=== PATIENT | male | born 1970 | race Caucasian/White ===

== ENCOUNTER 2016-05-10 18:50 | Emergency (ER) ==
[2016-05-10 19:25] LABS: URINE CULTURE PL NEEDED? NO; URINE SOURCE VOIDED
[2016-05-10 19:37] LABS: UR AMPHETAMINES QUAL NONE DETECTED (NONE DETECT); UR BARBITUATES QUAL NONE DETECTED (NONE DETECT); UR BENZODIAZEPIN QUAL NONE DETECTED (NONE DETECT); UR CANNABINOIDS QUAL NONE DETECTED (NONE DETECT); UR COCAINE QUAL NONE DETECTED (NONE DETECT); UR MDMA QUAL NONE DETECTED (NONE DETECT); UR METHADONE QUAL NONE DETECTED (NONE DETECT); UR METHAMPHETAMINE QUAL NONE DETECTED (NONE DETECT); UR OPIATES QUAL NONE DETECTED (NONE DETECT); UR OXYCODONE QUAL NONE DETECTED (NONE DETECT); UR PCP QUAL NONE DETECTED (NONE DETECT); UR TCA QUAL NONE DETECTED (NONE DETECT)
[2016-05-10 19:50] LABS: BILIRUBIN URINE NEGATIVE (NEGATIVE); BLOOD URINE NEGATIVE (NEGATIVE); CLARITY CLEAR (CLEAR); COLOR YELLOW; LEUKOCYTES URINE NEGATIVE (NEGATIVE); NITRITE URINE NEGATIVE (NEGATIVE); PH URINE 6.5; PROTEIN URINE NEGATIVE (NEGATIVE); SP GRAVITY URINE 1.015; UROBILINOGEN URINE NORMAL
[2016-05-10 19:51] LABS: URINE CAST NONE SEEN /LPF; URINE CRYSTAL NONE SEEN /HPF; URINE EPITHELIAL CELLS <10 /HPF (<10)
[2016-05-10 20:42] LABS: MANUAL DIFF NEEDED? NO
[2016-05-10 20:47] LABS: BASO% 0.4 % (0.0-0.8); EOS# 0.06 X1000 (0.0-0.7); EOS% 0.7 % (0.0-10.0); HEMATOCRIT 35.5 % (42.0-52.0); IMM GRAN# 0.01 X1000 (0.0-0.04); IMM GRAN% 0.1 % (0.0-0.5); LYMPH# 1.45 X1000 (1.2-3.4); MCH 25.8 PG (27-31); MCV 83.1 FL (81-99); MONO% 8.7 % (1.7-9.3); MPV 10.5 FL (7.4-10.4); NEUT% 72.1 % (42.2-75.2); PLT 245 X1000 (130-400); RBC 4.27 XMIL (4.7-6.1)
[2016-05-10 21:10] LABS: ACETAMINOPHEN < 1.2 ug/mL (10-30); AGAP 8; ALBUMIN 4.2 g/dL (3.5-5.0); ALKALINE PHOSPHATASE 72 U/L (32-122); BUN 18 mg/dL (8-22); CALCIUM 8.6 mg/dL (8.8-10.2); CHLORIDE 108 mmol/L (98-107); COSMO 282; GOT 19 U/L (10-34); GPT 25 U/L (10-44); MAGNESIUM 2.1 mg/dL (1.5-2.7); SODIUM 141 mmol/L (136-145); TCO2 26 mmol/L (25-35); TOTAL BILIRUBIN < 0.15 mg/dL (0.20-1.00); TOTAL PROTEIN 6.5 g/dL (6.3-8.3)
--- NOTE | 2016-05-11 00:10 | PROVIDER DOCUMENTATION ---
HPI-Psychological Disorder - General Source: patient <Gerri Leal - Last Filed: 05/11/16 00:10> - General Source: patient - History of Present Illness-Psych Onset/Duration: reports: other (3 weeks) Timing: reports: still present Severity: reports: mild Situational problems related to:: reports: N/A Psychiatric Complaints: reports: suicidal ideation Substance Use: reports: none/never Previous psych related hospitalizations?: Yes Patient arrived by:: private car Similar Symptoms Previously?: Yes Recently seen or treated by another doctor?: No - Suicidal Ideation Suicide Risk Assessment: male sex, prior attempt, organized plan, bi-polar <Shruthi Vail - Last Filed: 05/11/16 00:20> - General Chief Complaint: Psych Stated Complaint: PHYCH EVAL/SUICIDAL Time Seen by Provider: 05/10/16 22:37 Allergies/Adverse Reactions: Patient Allergies Allergy/AdvReac Type Severity Reaction Status Date / Time No Known Allergies Allergy Verified 06/26/14 01:20 Home Medications: Clonazepam [Klonopin] 1 mg PO TID 05/10/16 Duloxetine [Cymbalta] 60 mg PO DAILY 05/10/16 Gabapentin [Neurontin] 400 mg PO TID 05/10/16 Ziprasidone [Geodon] 80 mg PO 05/10/16 Zolpidem Tartrate [Ambien] 10 mg PO DAILY 05/10/16 - History of Present Illness-Psych Nature of Presenting Problem: 45 year old M presents to the ED with a cc of suicidal ideation. Pt states that onset was 3 weeks ago. Pt states that he called his doctor and they called him in Ambien. Pt states that none of his medications have been working. Pt has had prior attempts before of suicide by cutting, hanging, and jumping out of a moving vehicle. PT states this time he has considered shooting himself. states that she has locked all ammo in a safe and has a plan to move all weapons out of the house tonight. PT states last week he had some visual hallucinations but that has since resolved. Pt denies HI. (Shruthi Vail) Review of Systems - Adult - REVIEW OF SYSTEMS - ADULT Constitutional: denies: chills, fever Eyes: reports: no symptoms reported Ears, Nose, Mouth & Throat: reports: no symptoms reported Cardiovascular: reports: no symptoms reported Respiratory: reports: no symptoms reported Gastrointestinal: denies: nausea, vomiting Genitourinary: reports: no symptoms reported Musculoskeletal: denies: muscle aches, muscle weakness Integumentary: denies: skin sores/ulcer, skin thickening Neurological: reports: no symptoms reported Psychiatric: reports: suicidal thoughts, other (bipolar) Endocrine: reports: no symptoms reported Hematologic/Lymphatic: reports: no symptoms reported Allergic/Immunologic: reports: no symptoms reported All Other Systems: Reviewed and Negative <Shruthi Vail - Last Filed: 05/11/16 00:20> Past History - Adult - PAST MEDICAL HISTORY-ADULT Cardiovascular: reports: HTN - PRIOR SURGERIES/PROCEDURES Surgical/Procedure History: reports: hernia repair, gastric bypass - IMMUNIZATION STATUS Childhood Immunizations: See Nurse Assessment Flu Vaccine: See Nurse Assessment <Gerri Leal - Last Filed: 05/11/16 00:10> - PAST MEDICAL HISTORY-ADULT Review of Records: reports: Nursing Assessment Review, Medications Reviewed Major Childhood Illnesses: reports: denies history Cardiovascular: reports: HTN Psychiatric: reports: bipolar, depression - PRIOR SURGERIES/PROCEDURES Surgical/Procedure History: reports: hernia repair, gastric bypass - IMMUNIZATION STATUS Childhood Immunizations: See Nurse Assessment Flu Vaccine: See Nurse Assessment - SOCIAL HISTORY Smoking: non-smoker Substance Use: none/never Alcohol Use Frequency: never <Shruthi Vail - Last Filed: 05/11/16 00:20> Physical Exam-Psych Focus - Physical Exam-Psych Initial Vital Signs Reviewed: Yes Appearance: appropriate appearance, appropriate insight, neat, no memory impairment, denies illness Neurological: alert, normal mood/affect, calm, house designer II-XII nml as tested, oriented x 3, responds to pain Behavior/Eye Contact/Speech: cooperative, good eye contact, normal speech Thoughts/Hallucinations: normal thought pattern, no apparent hallucination Respiratory: chest non-tender, lungs clear, normal breath sounds Cardiovascular: normal peripheral pulses, regular rate, rhythm, no edema Abdominal Exam: non tender, soft Integumentary: normal color, normal turgor, warm/dry <Shruthi Vail - Last Filed: 05/11/16 00:20> Progress <Gerri Leal - Last Filed: 05/11/16 00:10> - PSYCHIATRIC Medically clear for psych eval and/or transfer to [facility].: Yes <Shruthi Vail - Last Filed: 05/11/16 00:20> - PLAN OF CARE/RESULTS Progress/Plan/Lab Results: plan of care: labs, EKG, psych consult Orders Category Date Time Status ACETAMINOPHEN [TDM] Stat Lab 05/10/16 20:25 Completed ALCOHOL BLOOD Stat Lab 05/10/16 20:25 Completed CBC WITH DIFF [HEME] Stat Lab 05/10/16 20:25 Completed COMPREHENSIVE METABOLIC PANEL [CHEM] Stat Lab 05/10/16 20:25 Completed FREE T3 [HH] Stat Lab 05/10/16 20:25 Received MAGNESIUM [CHEM] Stat Lab 05/10/16 20:25 Completed SALICYLATES [TDM] Stat Lab 05/10/16 20:25 Completed TSH Stat Lab 05/10/16 20:[address] W/POSS RFLX CULT [URINALYSIS] Stat Lab 05/10/16 19:17 Completed URINE DRUG SCREEN PL Stat Lab 05/10/16 19:17 Completed VITAMIN B12 Stat Lab 05/10/16 20:25 Results VITAMIN B12 Stat Lab 05/10/16 20:25 Stop Req EKG [EKG] Stat Ther 05/10/16 19:18 Ordered Laboratory Tests 05/10/16 05/10/16 05/10/16 19:17 19:17 20:25 WBC RBC Hgb Hct MCV MCH MCHC RDW Std Deviation Plt Count MPV Immature Gran % (Auto) Neut % (Auto) Lymph % (Auto) Citrus % (Auto) Eos % (Auto) Baso % (Auto) Immature Gran # (Auto) Neut # Lymph # Citrus # Eos # Baso # Sodium 141 Potassium 4.0 Chloride 108 H Carbon Dioxide 26 Anion Gap 8 BUN 18 Creatinine 0.9 Estimated GFR/1.73 m2 > 60 BUN/Creatinine Ratio 20 Glucose 82 Calculated Osmolality 282 Calcium 8.6 L Magnesium 2.1 Total Bilirubin < 0.15 L AST 19 ALT 25 Alkaline Phosphatase 72 Total Protein 6.5 Albumin 4.2 Globulin 2.0 Albumin/Globulin Ratio 2.0 TSH Urine Source VOIDED Urine Color YELLOW Urine Clarity CLEAR Urine pH 6.5 Ur Specific Gleason 1.015 Urine Protein NEGATIVE Urine Ketones TRACE Urine Blood NEGATIVE Urine Nitrite NEGATIVE Urine Bilirubin NEGATIVE Urine Urobilinogen NORMAL Urine Microscopic RBC Not Reportable Urine WBC NEGATIVE Ur Epithelial Cells <10 Urine Crystals NONE SEEN Urine Bacteria NEGATIVE Urine Casts NONE SEEN Urine Yeast NONE SEEN Urine Glucose 2+(250 mg/dL) A Salicylates < 3.00 L Urine Opiates Screen NONE DETECTED Ur Oxycodone Screen NONE DETECTED Urine Methadone Screen NONE DETECTED Acetaminophen < 1.2 L Ur Barbituates Screen NONE DETECTED Ur Tricyclics Screen NONE DETECTED Ur Phencyclidine Scrn NONE DETECTED Ur Amphetamines Screen NONE DETECTED U Methamphetamines Scrn NONE DETECTED Urine MDMA Screen NONE DETECTED U Benzodiazepines Scrn NONE DETECTED Urine Cocaine Screen NONE DETECTED U Cannabinoids Screen NONE DETECTED Plasma/Serum Ethyl Alc 05/10/16 05/10/16 05/10/16 20:25 20:25 20:25 WBC 8.05 RBC 4.27 L Hgb 11.0 L Hct 35.5 L MCV 83.1 MCH 25.8 L MCHC 31.0 L RDW Std Deviation 15.4 H Plt Count 245 MPV 10.5 H Immature Gran % (Auto) 0.1 Neut % (Auto) 72.1 Lymph % (Auto) 18.0 L Citrus % (Auto) 8.7 Eos % (Auto) 0.7 Baso % (Auto) 0.4 Immature Gran # (Auto) 0.01 Neut # 5.80 Lymph # 1.45 Citrus # 0.70 H Eos # 0.06 Baso # 0.03 Sodium Potassium Chloride Carbon Dioxide Anion Gap BUN Creatinine Estimated GFR/1.73 m2 BUN/Creatinine Ratio Glucose Calculated Osmolality Calcium Magnesium Total Bilirubin AST ALT Alkaline Phosphatase Total Protein Albumin Globulin Albumin/Globulin Ratio TSH 0.93 Urine Source Urine Color Urine Clarity Urine pH Ur Specific Gleason Urine Protein Urine Ketones Urine Blood Urine Nitrite Urine Bilirubin Urine Urobilinogen Urine Microscopic RBC Urine WBC Ur Epithelial Cells Urine Crystals Urine Bacteria Urine Casts Urine Yeast Urine Glucose Salicylates Urine Opiates Screen Ur Oxycodone Screen Urine Methadone Screen Acetaminophen Ur Barbituates Screen Ur Tricyclics Screen Ur Phencyclidine Scrn Ur Amphetamines Screen U Methamphetamines Scrn Urine MDMA Screen U Benzodiazepines Scrn Urine Cocaine Screen U Cannabinoids Screen Plasma/Serum Ethyl Alc Vital Signs - 24 hr 05/10/16 19:07 Temperature 98 F Pulse Rate 106 H Respiratory 18 Rate Blood Pressure 141/97 O2 Sat by Pulse 97 Oximetry Pt given results and will be d/c home w/o rx to follow up with PCP. Pt verbally understood instructions. PT remained clinically stable throughout the course of the ED stay and will return if symptoms worsen. (Shruthi Vail) - PSYCHIATRIC Psych patient progress: Contract for safety signed. states that she will move all weapons out of the house tonight and move them to her fathers house. (Shruthi Vail) Departure - Departure Time of Disposition Order: 00:10 Certified Medical Emergency: Emergent <Gerri Leal - Last Filed: 05/11/16 00:10> - Departure Time of Disposition Order: 00:19 Certified Medical Emergency: Emergent <Shruthi Vail - Last Filed: 05/11/16 00:20> - Departure DIAGNOSIS: Suicidal ideation Disposition: HOME 01 Condition: Stable Additional Instructions: Follow up as directed. ED Follow Up Instructions: You have been treated by a care provider in the Emergency Department. These instructions are being provided to you so you can have an understanding of how to care for yourself upon discharge. Upon discharge from the Emergency Department, you are responsible for making arrangements for follow-up care by a physician of your choice. Take all prescribed medications as directed. Return to the Emergency Department immediately for any new or worsening symptoms. You may call the Physician Referral phone number at [phone] to obtain a list of Physicians who are taking new patients. Referrals: Kendrick Coughlin MD [Primary Care Provider] - Attestation - Physician/ Mid-level Attestation Patient care was provided by Mid-level provider (SUMMER ANALYST/PA):: Yes Mid-level provider:: Gerri Leal Mid-level documentation review:: The Mid-level provider documentation, treatment plan and medical decision making was reviewed by the physician who agrees with all treatment and medical decision making by the MLP. <Gerri Leal - Last Filed: 05/11/16 00:10> - Scribe Verification/Attestation Scribe:: Shruthi Vail Acting as Scribe for:: Gerri Leal Scribe documention review:: This chart was documented by a scribe and accurately reflects the service the provider performed and the decisions made by the provider. <Shruthi Vail - Last Filed: 05/11/16 00:20> Physician Attestation - Physician Attestation I, the provider, attest to the following statement:: Gerri Leal Physician documentation Attestation:: This documentation recorded by the scribe accurately reflects the service I personally performed and the decisions made by me. <Shruthi Vail - Last Filed: 05/11/16 00:20>
[2016-05-11 00:41] VITALS: BP 128/79
== END 2016-05-11 00:36 | disposition home or self-care (01) ==
LOC: P.ED 18:50
DX: R45.851 Suicidal ideations (principal); I10 Essential (primary) hypertension; F32.9 Major depressive disorder, single episode, unspecified; F31.9 Bipolar disorder, unspecified; Z79.899 Other long term (current) drug therapy; Z98.84 Bariatric surgery status
CPT/HCPCS: 80053; 81001; 82607; 83735; 84443; 84481; 85025; 93005; 99283; G0477; G0480